=== PATIENT | female | born 2000 | race Caucasian/White ===

== ENCOUNTER 2021-09-25 12:00 | Emergency (ER) | payer OTHER, SELFPAY ==
--- NOTE | ~2021-09-25 | XR_ITS ---
EXAMINATION: XR chest 2V DATE: 09/25/2021 13:00 INDICATION: Chest pain. Shortness of breath. TECHNIQUE: Frontal and lateral views of the chest were obtained. COMPARISON: None. FINDINGS: The chest demonstrates clear lungs without pneumonia, pleural effusion, or pneumothorax. Th e heart size is normal. IMPRESSION: 1. No acute cardiopulmonary disease. Reviewed, dictated and finalized at location A. ETIC SURGEON
--- NOTE | ~2021-09-25 | CT_ITS ---
EXAMINATION: CT brain wo con DATE: 09/25/2021 14:02 INDICATION: Lower extremity paresthesias. TECHNIQUE: Computed tomography (CT) of the head was performed without intravenous contrast. The mA wa s adjusted according to patient size. Iterative reconstruction technique was employed. The dose-lengt h product was 605.33 mGy-cm. COMPARISON: None FINDINGS: There is no intracranial hemorrhage, acute infarction, or abnormal intracranial mass lesion . The ventricles are normal in size. The orbits are normal. The paranasal sinuses are clear. The mast oid air cells are normal. C1 ring is ununited posteriorly, a normal variant. IMPRESSION: 1. Normal brain. Reviewed, dictated and finalized at location A. ING MACHINE OPERATOR AUTOMATIC IMPRESSION: 1. Normal brain.
--- NOTE | 2021-09-25 12:04 | ECG_ITS ---
Measurements Intervals [place] Rate: 87 P: 66 DC: 124 QRS: 28 QRSD: 72 T: 42 QT: 313 QTc: 378 Interpretive Statements SINUS RHYTHM WITH SINUS ARRHYTHMIA MINIMAL Q [place]- HIGH LATERAL LEADS BORDERLINE ST ABNORMALITY- ANTEROLATERAL LEADS BASELINE ARTIFACT- I, II, III, AVR, AVL, AVF BORDERLINE ECG Electronically Signed On 09-25-2021 12:16:29 EDUCATIONAL AUDIOLOGIST by Ethan Pennington D.O.
[2021-09-25 12:20] VITALS: BP 119/85; RESP 18; TEMP 36.7; O2SAT 100
[2021-09-25 13:24] LABS: Basophils Percent Auto 0.2 % (0.2-1.2); Eosinophils Percent Auto 0.4 % (0-4.4); Hematocrit 41.1 % (37.0-47.0); Hemoglobin 13.8 g/dL (12.0-15.0); Immature Granulocyte Absolute 0.01 K/mm3 (0.00-0.031); Immature Granulocyte Percent A 0.2 % (0-0.5); Lymphocytes Absolute Auto 1.64 K/mm3 (0.9-3.2); Lymphocytes Percent Auto 31.5 % (18.3-44.2); Mean Corpuscular HGB Conc 33.6 g/dl (32-36); Mean Corpuscular Hemoglobin 30.3 pg (26-34); Mean Corpuscular Volume 90.3 fl (80-100); Mean Platelet Volume 10.7 fl (7.4-10.4); Monocytes Absolute Auto 0.4 K/mm3 (0.1-0.6); Monocytes Percent Auto 7.9 % (2.6-8.5); Neutrophils Absolute Auto 3.1 K/mm3 (1.3-6.7); Neutrophils Percent Auto 59.8 % (45.5-73.1); Platelet Count Result 180 k/mm3 (150-375); Red Blood Count 4.55 M/mm3 (4.2-5.4); Red Cell Distribution Width 11.9 % (11.5-14.5); White Blood Count 5.2 K/mm3 (4.5-10.0)
[2021-09-25 13:30] LABS: Alanine Aminotransferase 15 U/L (4-35); Albumin Level 4.7 g/dL (3.5-5.1); Alkaline Phosphatase 51 U/L (38-126); Anion Gap 9 mmol/L (8-16); Aspartate Amino Transferase 24 U/L (14-36); Bilirubin,Total 0.3 mg/dL (0.2-1.3); Blood Urea Nitrogen 11 mg/dL (7-17); Calcium 9.4 mg/dL (8.4-10.2); Carbon Dioxide 23 mmol/L (22-30); Chloride 107 mmol/L (98-107); Estimated CRCL calculation 84 ml/min; Estimated Glomerular Filt Rate > 60; Glucose 129 mg/dL (65-110); INR 0.9; Potassium 3.6 mmol/L (3.4-5.0); Prothrombin Time 12.4 Seconds (11.1-14.7); Sodium 139 mmol/L (137-145)
[2021-09-25 13:31] LABS: Partial Thromboplastin Time 25.9 SECONDS (22.3-36.8)
[2021-09-25 13:46] LABS: Troponin I < 0.012 ng/mL (0.000-0.034)
[2021-09-25] MEDS: SODIUM CHLORIDE 0.9% IV 1,000 ML 999 ML IV CONT (13:52)
--- NOTE | 2021-09-25 13:52 | ED.ANXIETY ---
HPI - Anxiety General Chief Complaint: Anxiety Stated Complaint: weak,tingling Time Seen by Provider: 09/25/21 12:29 Source: patient Mode of arrival: ambulatory Limitations: no limitations History of Present Illness HPI narrative: This is a 21 year old female that presents to the ER for possible anxiety attack. Reports she was at work and started to have chest pain. She then started to feel as though she could not breath. She started hyperventilating and feeling tingling in her legs. Reports this lasted for about 20 minutes and resolved. She does have history of anxiety. Currently in counseling, not on any medications. Reports symptoms have now resolved. She now just feels a little fatigued. Related Data Allergies Allergy/AdvReac Type Severity Reaction Status Date / Time No Known Allergies Allergy Verified 09/25/21 12:25 Review of Systems Review of Systems: CONSTITUTIONAL: Denies fever CARDIOVASCULAR: Reports chest pain RESPIRATORY: Reports dyspnea. NEUROLOGIC: Denies numbness, or weakness. PSYCHIATRIC: Reports anxiety All systems reviewed & are unremarkable except as noted in HPI and below PMFSH Past Medical History Medical History (Updated 09/25/21 @ 15:07 by Caren Hernandez PA-C) History of anxiety Social History Social History Substance use type: does not use Exam Narrative: GENERAL: Well-appearing, well-nourished, and in no acute distress. HEAD: Normocephalic, atraumatic. EYES: PERRLA and EOMI. ENT: Nares clear, no rhinorrhea or epistaxis. Mucous membranes moist. Oropharynx without tonsillar hypertrophy exudate or other lesions. Bilateral TMs pearly vargas non-bulging NECK: Supple. No adenopathy or masses. CHEST: Clear to auscultation. No respiratory distress. No wheezes rales or rhonchi HEART: Regular rate and rhythm. No murmur heard. Normal peripheral pulses. EXTREMITIES: Normal range of motion. No edema. Strength equal in bilateral upper and lower extremities (5/5) SKIN: Warm, dry, no rash. NEURO: No focal deficits. Alert and oriented x3. Cranial nerves II through XII grossly intact PSYCH: Normal mood and affect Course Vital Signs Vital signs: Vital Signs Temperature 98.0 F 09/25/21 12:20 Respiratory Rate 18 09/25/21 12:20 Blood Pressure 119/85 09/25/21 12:20 Pulse Oximetry 100 09/25/21 12:20 Temperature 98.0 F 09/25/21 12:20 Respiratory Rate 18 09/25/21 12:20 Blood Pressure 119/85 09/25/21 12:20 Pulse Oximetry 100 09/25/21 12:20 MDM - Anxiety MDM Narrative Medical decision making narrative: Patient presents to the emergency department for an episode of chest pain, shortness of breath, tingling in the extremities. Does report history of generalized anxiety and panic attacks. Asymptomatic upon arrival to the ED. Her vitals are stable. She is neurologically intact. CBC and metabolic panel without concerning findings. EKG without acute ST changes and baseline troponin is negative. D-dimer is not elevated. Chest x-ray without acute cardiopulmonary abnormality. Bedside test is negative. TSH is normal. CT scan of the brain without acute findings. Patient was updated on case findings. She is stable and felt appropriate for further outpatient evaluation. Instructed to follow-up with her primary doctor. She was given warnings to return to the ER Lab Data Attestation: I reviewed the patient's lab results. Result diagrams: 09/25/21 13:13 09/25/21 13:13 Labs: Lab Results 09/25/21 09/25/21 09/25/21 Range/Units 13:13 13:13 13:13 WBC 5.2 (4.5-10.0) K/mm3 RBC 4.55 (4.2-5.4) M/mm3 Hgb 13.8 (12.0-15.0) g/dL Hct 41.1 (37.0-47.0) % MCV 90.3 (80-100) fl MCH 30.3 (26-34) pg MCHC 33.6 (32-36) g/dl RDW 11.9 (11.5-14.5) % Plt Count 180 (150-375) k/mm3 MPV 10.7 H (7.4-10.4) fl Immature Gran % (Auto) 0.2 (0-0.5) % Neut % (Auto) 59.8 (45.5-73.1) % Lymph % (Auto) 31.5
--- NOTE | 2021-09-25 14:08 | PC.NURSE ---
Called lab to add on D-Dimer
[2021-09-25 14:35] LABS: D Dimer 0.27 ug/mL (<0.48)
[2021-09-25 15:17] VITALS: BP 122/68; PULSE 80; RESP 18; O2SAT 99
== END 2021-09-25 15:19 | disposition home or self-care (01) ==
PROVIDERS: Physician Assistant; Emergency Provider Family Medicine; PCP Family Medicine
DX: F41.9 Anxiety disorder, unspecified (principal); R07.9 Chest pain, unspecified; R94.31 Abnormal electrocardiogram [ECG] [EKG]
CPT/HCPCS: 36415; 70450; 71046; 80053; 81025; 84443; 84484; 85025; 85380; 85610; 85730; 93005; 96360; 99284; J7030

== ENCOUNTER 2022-06-12 13:59 | Emergency (ER) | payer OTHER, SELFPAY ==
[2022-06-12 14:26] VITALS: BP 93/75; PULSE 98; RESP 20; TEMP 36.9; O2SAT 100
--- NOTE | 2022-06-12 14:57 | ED.SKABFB ---
HPI - Skin/Abscess/Foreign Bdy General Chief complaint: Skin/Abscess/Foreign Body Stated complaint: rectal cyst Time Seen by Provider: 06/12/22 14:57 Source: patient Mode of arrival: ambulatory Limitations: no limitations History of Present Illness HPI narrative: Patient is 22 years old white female presents with abscess like lesion at the tailbone started 5 days ago, red, painful, getting worse. Patient had similar symptoms 5 years ago required I&D. Patient denies any fever, chills, nausea, vomiting. Related Data Allergies Allergy/AdvReac Type Severity Reaction Status Date / Time No Known Allergies Allergy Verified 09/25/21 12:25 Review of Systems Review of Systems: All systems reviewed & are unremarkable except as noted in HPI and below PMFSH Past Medical History Medical History History of anxiety Social History Social History Substance use type: does not use Exam Narrative: General appearance: Well-developed, well-nourished Skin: Normal color, 2 x 1 cm abscess at the left buttocks at the gluteal cleft, red, severely tender, positive fluctuation, no discharge Chest and respiratory: Airway patent, no respiratory distress, no accessory muscle use Heart: Regular rate/rhythm Neurologic: Alert and oriented ?3 Course Vital Signs Vital signs: Vital Signs Temperature 36.9 C 06/12/22 14:26 Pulse Rate 98 06/12/22 14:26 Respiratory Rate 20 06/12/22 14:26 Blood Pressure 93/75 L 06/12/22 14:26 Pulse Oximetry 100 06/12/22 14:26 Oxygen Delivery Room Air 06/12/22 14:26 Temperature 36.9 C 06/12/22 14:26 Pulse Rate 78 06/12/22 17:10 Respiratory Rate 18 06/12/22 17:10 Blood Pressure 102/78 06/12/22 17:10 Pulse Oximetry 99 06/12/22 17:10 Oxygen Delivery Room Air 06/12/22 14:26 Procedures Abscess I/D back: Date of Incision: 06/12/22 Time of Incision: 17:25 Side (if applicable): left Local Anesthetic: lidocaine 2% and with epi Amount of anesthesia used (mL): 2 Technique: incised with #11 blade and probed loculations Amount of fluid expressed (mL): 30 Irrigation: Yes Packing used?: iodoform I&D Results: Pus and Blood Complications: pain Abcess I&D Additional Comments: Patient was very sensitive to even touch her skin. Was not easy to manage. I was not able to squeeze the abscess to get everything out, I was not able to irrigated more than 1 time, I was not able to pack it all the way because of the screaming and restlessness. Critical Care Time Critical Care Time Critical Care Time: No Discharge Plan Discharge Clinical Impression: Pilonidal abscess Patient Disposition: Home, Self-Care Condition: Stable Instructions: Antibiotic Form, Pilonidal Cyst (ED), Abscess (ED) Additional Instructions: Follow-up with surgery, remove packing in 48 hours, Tylenol, ibuprofen as needed Prescriptions: New clindamycin HCl 300 mg capsule 300 mg PO Q6H Qty: 28 0RF hydrocodone-acetaminophen 5-325 mg tablet 1 tablet PO DAILY Qty: 12 0RF Follow-up/Referrals: Jude Barnes MD [Physician] - 06/14/22 Audie,Salas Saavedra MD [Primary Care Provider] -
[2022-06-12] MEDS: IBUPROFEN 600 MG TABLET PO (16:18)
[2022-06-12] MEDS: oxyCODONE/ACETAMINOPHEN (*CRX) 5-325 MG TABLET 1 TABLET PO (16:19)
[2022-06-12 17:10] VITALS: BP 102/78; PULSE 78; RESP 18; O2SAT 99
== END 2022-06-12 17:12 | disposition home or self-care (01) ==
PROVIDERS: Emergency Provider Emergency Medicine; PCP Family Medicine
DX: L05.01 Pilonidal cyst with abscess (principal)
CPT/HCPCS: 10061; 10080; 87070; 87205; 99283; A9270